=== PATIENT | female | born 1975 ===

== ENCOUNTER → 2018-11-19 | Outpatient (CLI) | payer OTHER | LOC: FIMAGING 11:36 → MERGE 11:36 | PROVIDERS: ATTEND Obstetrics & Gynecology | DX: Z12.31 Encounter for screening mammogram for malignant neoplasm of breast (principal) ==

== ENCOUNTER 2019-01-07 14:08 | Day surgery (SDC) | payer OTHER ==
--- NOTE | 2019-01-05 16:53 | PDGENHP ---
History and Physical - Chief Complaint Retained IUD fragment - History of Present Illness Dalia is a 43 yo who was seen in our CNM office for removal of Paragaurd IUD that had been in situ since 2010. CNM reported putting gentle traction on the strings and device came rather easily, but when removed noticed one arm missing. US performed soon after confirmed arm/fragment of IUD within the myometrium on the patients left. We met in the office to discuss options - she' s not currently having any bleeding or pain. Would like attempt at hysteroscopic removal vs observation. History Information - Allergies/Home Medication List Allergies/Adverse Reactions: shellfish derived Allergy (Verified 01/05/19 12:54) Hives seafood Allergy (Uncoded 01/05/19 12:54) Hives Home Medications: NK [No Known Home Meds] 01/05/19 [Last Taken Unknown] I have personally reviewed and updated: family history, medical history, social history, surgical history - Past Medical History no pertinent PMH - Surgical History Reports: no pertinent surgical hx - Family History Additional family history: Family h/o breast ca - Social History Smoking Status: Never smoked Review of Systems Review of Systems: ROS: 10pt was reviewed & negative except for what was stated in HPI & below Physical Exam Physical Exam: Alert, pleasant, NAD. Assessment & Plan Assessment: Preop: Retained IUD fragment. Diagnostic hysteroscopy, with intra-op US guidance if needed, Hysteroscopic removal of IUD fragment. - Routine preop orders, does not need any preop abx. - Home same day. - Discussed possibility that I might not be able to see/remove the fragment. DEEDEE
[2019-01-07] MEDS ORDERED: LR 1,000 ML IV ONE (14:19)
[2019-01-07] MEDS ORDERED: EPINEPHrine 1 MG/ML INJ ONE (14:58)
[2019-01-07] MEDS ORDERED: BUPIVACAINE 0.25% 30 ML SDV ONE (14:58)
--- NOTE | 2019-01-07 15:47 | PDHPUP ---
History & Physical Update H&P update statement: This history and physical update is based on an assessment of the patient which was completed after admission or registration (within 24 hours), but prior to the surgery/procedure. H&P update: H&P reviewed & patient examined, no change in patient's condition since H&P completed
[2019-01-07] MEDS ORDERED: MIDAZOLAM 2 MG/2 ML VIAL ONE (15:59)
[2019-01-07] MEDS ORDERED: ALBUTEROL 3 ML DEYVIAL IH PRN (16:00)
[2019-01-07] MEDS ORDERED: MIDAZOLAM 2 MG/2 ML VIAL IVP ONE (16:00)
[2019-01-07] MEDS ORDERED: ONDANSETRON 4 MG/2 ML VIAL IVP PRN (16:00)
[2019-01-07] MEDS ORDERED: fentaNYL 100 MCG/2 ML INJ IVP PRN (16:00)
[2019-01-07] MEDS ORDERED: LR 500 ML IV PRN (16:00)
[2019-01-07] MEDS ORDERED: NS 500 ML IV PRN (16:00)
[2019-01-07] MEDS ORDERED: NALOXONE HCL 0.4 MG/ML INJ IVP PRN (16:00)
[2019-01-07] MEDS ORDERED: DEXAMETHASONE 4 MG/ML VIAL IVP PRN (16:00)
--- NOTE | 2019-01-07 16:00 | PDANEPAE ---
ANE History of Present Illness here for hysteroscopy ANE Past Medical History - Cardiovascular History Hx Hypertension: No Hx Arrhythmias: No Hx Chest Pain: No Hx Coronary Artery / Peripheral Vascular Disease: No Hx CHF / Valvular Disease: No Hx Palpitations: No - Pulmonary History Hx COPD: No Hx Asthma/Reactive Airway Disease: No Hx Recent Upper Respiratory Infection: No Hx Oxygen in Use at Home: No Hx Sleep Apnea: No Sleep Apnea Screening Result - Last Documented: Negative Pulmonary History Comment: seasonal allergies - Neurologic History Hx Cerebrovascular Accident: No Hx Seizures: No Hx Dementia: No - Endocrine History Hx Diabetes: No - Renal History Hx Renal Disorders: No - Liver History Hx Hepatic Disorders: No - Neurological & Psychiatric Hx Hx Neurological and Psychiatric Disorders: No - Cancer History Hx Cancer: No - Congenital Disorder History Hx Congenital Disorders: No - GI History Hx Gastrointestinal Disorders: No - Other Health History Other Health History: none - Chronic Pain History Chronic Pain: No - Surgical History Prior Surgeries: last surgery 10 yrs ago. ACL reconstruction ANE Review of Systems Review of systems is: negative Review of Systems: - Exercise capacity Exercise capacity: >=4 METS METS (RN): 5 METS ANE Patient History - Allergies Allergies/Adverse Reactions: shellfish derived Allergy (Verified 01/05/19 12:54) Hives seafood Allergy (Uncoded 01/05/19 12:54) Hives - Home Medications Home medications: home medication list seen and reviewed Home Medications: NK [No Known Home Meds] 01/05/19 [Last Taken Unknown] - NPO status NPO Status: no food or drink >8 hours NPO Since - Liquids (Date): 01/07/19 NPO Since - Liquids (Time): 12:00 NPO Since - Solids (Date): 01/07/19 NPO Since - Solids (Time): 06:00 - Anes Hx Anes Hx: no prior problems - Smoking Hx Smoking Status: Never smoked - Family Anes Hx Family Hx Anesthesia Complications: none ANE Labs/Vital Signs - Vital Signs Vital Signs: reviewed preoperatively; see RN documention for details Blood Pressure: 137/81 Heart Rate: 81 Respiratory Rate: 14 O2 Sat (%): 96 Height: 162.56 cm Weight: 65.771 kg ANE Anesthesia Plan Anesthesia Plan: GA with mask
[2019-01-07] MEDS ORDERED: PROPOFOL/EMULSION 500 MG/50 ML BOTTLE IV ONE ×3 (16:04→16:38)
[2019-01-07] MEDS ORDERED: fentaNYL 100 MCG/2 ML INJ ONE ×2 (16:15→17:27)
--- NOTE | 2019-01-07 16:54 | POSTOPPROG ---
Post Op Note Date of Operation: 01/07/19 Surgeon: Zain Covarrubias Watershed Coordinator: None Anesthesiologist: Jack Stuart Anesthesia: IV Sedation Pre-op Diagnosis: Impacted/retained IUD fragment Post-op Diagnosis: Same, resolved Procedure: Diagnostic hysteroscopy, Hysteroscopic removal of IUD fragment Findings: Normal cavity, one arm of IUD seen impacted in LEONARD/prox cervix, Left Inf/Abcess present in the surg proc area at time of surgery?: No EBL: Minimal Total fluids administered: 1000cc Complications: None Specimen(s): None
--- NOTE | 2019-01-07 17:04 | POSTANESTH ---
Post Anesthetic Evaluation Cardiovascular Status: Normal, Stable Respiratory Status: Normal, Stable Level of Consciousness/Mental Status: Moderately Sleepy Pain Control: Adequate, Prn Tx Ordered Nausea/Vomiting Control: Adequate, Prn Tx Ordered Complications Possibly Related to Anesthesia: None Noted
--- NOTE | 2019-01-07 17:19 | SUROPNOTE ---
[facility] Operative Report - Surgery Date of Operation: 01/07/19 Surgeon: Zain Covarrubias Airplane Pilot: None Anesthesiologist: Jack Stuart Anesthesia: IV Sedation Pre-op Diagnosis: Impacted/retained IUD fragment Post-op Diagnosis: Same, resolved Procedure: Diagnostic hysteroscopy, Hysteroscopic removal of IUD fragment Findings: Normal cavity, one arm of IUD seen impacted in LEONARD/prox cervix, Left Inf/Abcess present in the surg proc area at time of surgery?: No EBL: Minimal Total fluids administered: 1000cc Complications: None Specimen(s): None Technique: The patient was taken to the operating room where her identity and planned procedure were confirmed during timeout. The patient was placed under MAC anesthesia without issue. When anesthesia was found to be adequate, the patient was prepped (no betadine due to shelfish allergy) and draped in the normal sterile fashion in dorsal lithotomy position in Chintan stirrups. No antibiotics were indicated nor given. The patient had voided just prior to OR so straight cath was not necessary. Milligan speculum placed in the vagina and anterior lip of the cervix grasped with single-tooth tenaculum. A paracervical block was placed with 5cc of local anesthetic with epi at 4:00 and 8:00 locations at the cervico-vaginal junction - 10cc total. The cervix was carefully serially dilated first to allow 6mm TruClear scope. Dilation proceeded easily with no concerns for injury to the uterus. Scope inserted and findings noted as above. The TruClear device was used to remove loose tissue in my field of view. This tissue was not from a discrete polyp or lesion and was not sent for path. US guidance was used in real time to help locate the fragment - performed transabdominally. As I withdrew the scope into the lower uterine segment and endocervical canal we could just barely see a portion of the fragment emanating from the wall. A flexible cystoscopic grasper was introduced into the working mitali and we were able to grab the exposed end of the fragment and remove it intact and completely. The case was then concluded. The tenaculum was removed from the cervix and the tenaculum sites were found to be hemostatic. Sponge, lap, needle , and instrument counts were announced as as correct. B&O suppository placed at the conclusion of the case. I was scrubbed and present for the entire procedure.
[2019-01-07 18:50] VITALS: BP 126/82
== END 2019-01-07 19:22 | disposition home or self-care (01) ==
LOC: FSGY 14:08
PROVIDERS: ATTEND Obstetrics & Gynecology
PROC: 0UPD8HZ Removal of Contraceptive Device from Uterus and Cervix, Via Natural or Artificial Opening Endoscopic (ICD-10-PCS; principal; 2019-01-07 16:00)
DX: T83.31XA Breakdown (mechanical) of intrauterine contraceptive device, initial encounter (principal)
CPT/HCPCS: 58562; 76998; C1782; J0171; J2250; J2704; J3010